=== PATIENT | female | born 1990 | race African-American/Black ===

== ENCOUNTER 2018-07-15 22:01 | Emergency (ER) | payer OTHER ==
[~2018-07-15] VITALS: Ht 149.9 cm; Wt 48.5 kg
[~2018-07-15 22:01] MED LIST: ACETAMINOPHEN-1 EAC1 PO; APAP500 PO; AUGMENTIN 875875 M1 PO; BACTRIM DS TAB1 EACH PO; CIPRO HC OTIC S10 ML OTIC; COLACE100 MG PO; DERMOPLAST PA82.5 ML TP; IBUPROFEN 600600 M1 PO; IBUPROFEN100 MG/52 PO; IRON325 PO; KEFLEX500 MG PO; LANOLIN56 GM; LORTABELXR; LORTABELXR PO; MACROBID 100 M100 M1 PO; NAPROSYN500 MG PO; PHENERGAN 25 MG25 M1 PO; SEPTRA SUSPENS100 ML PO; TUCKS MEDICATE1 EAC1; TUCKS1 EAC1 TP; ZOFRAN4 MG PO
[2018-07-15] MEDS ORDERED: VENTOLIN HFA 1818 GM INH (23:13)
[2018-07-15] MEDS ORDERED: PREDNISONE 20 M20 MG PO (23:13)
[2018-07-15] MEDS ORDERED: TESSALON PERLE100 MG PO (23:13)
[2018-07-15 23:42] VITALS: BP 124/63
== END 2018-07-15 23:46 | disposition home or self-care (01) ==
LOC: ER 22:01
DX: R07.9 Chest pain, unspecified (principal); J40 Bronchitis, not specified as acute or chronic; Z98.890 Other specified postprocedural states

== ENCOUNTER 2020-05-04 08:09 | Emergency (ER) | payer OTHER ==
[~2020-05-04] VITALS: Ht 149.9 cm; Wt 53.1 kg
[~2020-05-04 08:09] MED LIST changes: +PREDNISONE 20 M20 MG PO; +TESSALON PERLE100 MG PO; +VENTOLIN HFA 1818 GM INH
[2020-05-04 08:41] LABS: URINE BILIRUBIN NEGATIVE (Negative); URINE BLOOD 3+ (Negative); URINE CLARITY CLEAR; URINE COLOR YELLOW; URINE GLUCOSE-RANDOM* NEGATIVE (Negative); URINE KETONES NEGATIVE (Negative); URINE LEUKOCYTES-REFLEX NEGATIVE (Negative); URINE NITRITE-REFLEX NEGATIVE (Negative); URINE PROTEIN (DIPSTICK) NEGATIVE (Negative); URINE SPECIFIC GRAVITY 1.025 (1.005-1.035); URINE UROBILINOGEN 0.2 E.U./dl (0.2-1.0)
[2020-05-04 08:50] LABS: CASTS None Seen /LPF (None Seen); MUCUS >6 Heavy strn/LPF (None Seen); SQUAMOUS 4-10 Moderate /LPF (0-3)
[2020-05-04 08:51] LABS: BACTERIA-REFLEX None Seen /HPF (None Seen); CRYSTALS None Seen /LPF (None Seen); URINE WBC-REFLEX 0-5 Rare /HPF (0-5)
[2020-05-04 10:02] LABS: ABSOLUTE NEUTROPHILS 4.8 thou/uL (1.4-8.2); BASOPHILS 0.6 % (0.0-2.0); EOSINOPHILS 0.6 % (0.0-3.0); HEMATOCRIT 43.6 % (37.0-47.0); HEMOGLOBIN 14.8 gm/dL (12.0-15.0); LYMPHOCYTES 28.1 % (24.0-44.0); MCH 29.2 pg (26.0-34.0); MCHC 33.9 g/dL (28.0-37.0); MCV 86.1 fL (80.0-100.0); MONOCYTES 4.6 % (1.0-8.0); PLATELET COUNT 407 thou/uL (150-400); POLYS 66.1 % (36.0-66.0); RBC 5.07 mil/uL (4.20-5.00); RDW 11.6 % (10.5-14.5); WBC 7.2 thou/uL (4.0-11.0)
[2020-05-04 10:13] LABS: CREATININE 0.7 mg/dL (0.6-1.0); POTASSIUM 3.7 mmol/L (3.5-5.1)
[2020-05-04 10:18] LABS: ALBUMIN 4.2 g/dL (3.4-5.0); TOTAL BILIRUBIN 0.7 mg/dL (0.2-1.0); TOTAL PROTEIN 8.7 g/dL (6.4-8.2)
[2020-05-04 12:18] VITALS: BP 133/76
== END 2020-05-04 12:35 | disposition home or self-care (01) ==
LOC: ER 08:09
PROVIDERS: Emergency Medicine
DX: N93.8 Other specified abnormal uterine and vaginal bleeding (principal); T38.4X5A Adverse effect of oral contraceptives, initial encounter; R51.9 Headache, unspecified; Y92.89 Other specified places as the place of occurrence of the external cause